=== PATIENT | female | born 1990 ===

== ENCOUNTER 2017-06-27 19:47 | Emergency (ER) | payer MEDICAID ==
[2017-06-27 19:50] VITALS: PULSE 84; RESP 20; TEMP 98.4; O2SAT 98
--- NOTE | 2017-06-27 20:52 | C.PDOC ---
History Of Present Illness 27-year-old female, presents to the emergency department with complaints of right sided back pain that radiates to right leg over the past few days. Pain worsened today, she took Flexeril last night and Aleve today. Patient states she has been having this pain intermittently since she was [age] years old, and worsened after her last year. No trauma. Denies any nausea/ vomiting, fevers, weakness/numbness, bladder/bowel incontinence. Time Seen by Provider: 06/27/17 19:53 Chief Complaint (Nursing): Back Pain History Per: Patient History/Exam Limitations: no limitations Onset/Duration Of Symptoms: Days Current Symptoms Are (Timing): Still Present Past Medical History Reviewed: Historical Data, Nursing Documentation, Vital Signs Vital Signs: Last Vital Signs Temp 98.4 F 06/27/17 19:48 Pulse 84 06/27/17 19:48 Resp 20 06/27/17 23:00 BP 118/74 06/27/17 23:00 Pulse Ox 98 06/27/17 22:31 Family History: States: No Known Family Hx - Social History Hx Tobacco Use: No Hx Alcohol Use: No Hx Substance Use: No - Immunization History Hx Tetanus Toxoid Vaccination: No Hx Influenza Vaccination: No Hx Pneumococcal Vaccination: No Review Of Systems Constitutional: Negative for: Fever, Chills Cardiovascular: Negative for: Chest Pain Respiratory: Negative for: Shortness of Breath Gastrointestinal: Negative for: Nausea, Vomiting Musculoskeletal: Positive for: Back Pain, Leg Pain Neurological: Negative for: Weakness, Numbness Physical Exam - Physical Exam Appears: Non-toxic, Other (uncomfortable, pt sitting hugging right leg up noting the stretch feels better) Skin: Normal Color, Warm, Dry, No Rash Head: Atraumatic, Normacephalic Eye(s): bilateral: Normal Inspection, EOMI Nose: Normal Oral Mucosa: Moist Neck: Normal ROM, Supple Chest: Symmetrical Respiratory: No Accessory Muscle Use Gastrointestinal/Abdominal: Soft, No Tenderness Back: No CVA Tenderness, No Vertebral Tenderness, Muscle Spasm, Paraspinal Tenderness ((+) right parasacral tenderness) Extremity: Normal ROM, Tenderness (right posterior thigh and buttock ), Capillary Refill (<2 seconds), No Deformity, No Swelling Extremity: Bilateral: Atraumatic Pulses: Left Dorsalis Pedis: Normal, Right Dorsalis Pedis: Normal Neurological/Psych: Oriented x3, Normal Speech, Normal Motor, Normal Sensation ED Course And Treatment O2 Sat by Pulse Oximetry: 98 (RA) Pulse Ox Interpretation: Normal Progress Note: UA ordered and reviewed. LMP now. No uti symptoms. Patient teated with Morphine, Toradol, Zofran and Valium. On re-evalaution, patient is resting comfortably, with improvement of back pain. Patient remains afebrile , with no bony tenderness, extremity numbness or weakness, or abdominal pain. Patient is ambulatory in the emergency department with no signs of discomfort. Patient was advised to follow up with physician/clinic in 1-2 days. Disposition - Disposition Disposition: HOME/ ROUTINE Disposition Time: 22:23 Condition: STABLE Additional Instructions: Follow up with primary medical doctor in 1-3 days without fail for further evaluation. Take medications as prescribed. Return to the emergency department at any time if symptoms persist or worsen. Prescriptions: diaZEpam [Valium] 5 mg PO BID #10 tab Naproxen [Naprosyn] 1 tab PO BID PRN #20 tab PRN Reason: Pain Nitrofurantoin Macrocrystals [Macrobid] 1 cap PO BID #10 cap traMADol [Ultram] 50 mg PO Q8 #20 tab Instructions: Low Back Pain (DC) Forms: [employer] ([place]i) - Clinical Impression Clinical Impression: Low back pain - Scribe Statement The provider has reviewed the documentation as recorded by the Scribe (Fern Kat) All medical record entries made by the Scribe were at my direction and personally dictated by me. I have reviewed the chart and agree that the record accurately reflects my personal performance of the history, physical exam, medical decision making, and the department course for this patient. I have also personally directed, reviewed, and agree with the discharge instructions and disposition.
[2017-06-27] MEDS ORDERED: Lidocaine 5% Patch TD STA (21:10)
[2017-06-27] MEDS ORDERED: Morphine 4 MG/ML VIAL ONE (21:25)
[2017-06-27] MEDS ORDERED: Lidocaine 5% Patch TD ONE (21:48)
[2017-06-27 22:17] LABS: HCG,QUALITATIVE URINE NEGATIVE (NEGATIVE); SQUAMOUS EPITHIAL 7 /hpf (0-5); URINE BACTERIA FEW (<OCC); URINE BILIRUBIN NEGATIVE (NEGATIVE); URINE BLOOD 3+ (NEGATIVE); URINE CLARITY Hazy (Clear); URINE COLOR Yellow (YELLOW); URINE GLUCOSE (UA) NORMAL (Normal); URINE LEUKOCYTE ESTERASE 1+ Leu/uL (Negative); URINE PROTEIN 1+ mg/dL (NEGATIVE)
[2017-06-27 23:01] VITALS: BP 118/74
== END 2017-06-27 23:00 | disposition home or self-care (01) ==
LOC: C.ER 19:47
DX: M54.5 Low back pain (principal)
CPT/HCPCS: 81001; 84703; 87086; 96372; 99283; J1885; J2270